=== PATIENT | female | born 1945 | race Caucasian/White ===

== ENCOUNTER → 2024-09-01 | Outpatient (CLI) | payer MEDICARE, OTHER, SELFPAY ==
[2024-09-01 09:01] LABS: Basophils % (Auto) 1 % (0-2.5); Eosinophils # (Auto) 0.1 Thou/mm3 (0.0-0.5); Eosinophils % (Auto) 2 % (0-10); Hematocrit 39.4 % (36.0-46.0); Immature Granulocytes % (Auto) 0 % (0-0); Immature Granulocytes Auto 0.02 Thou/mm3 (0.00-0.00); Lymphocytes # (Auto) 1.4 Thou/mm3 (1.0-4.8); Lymphocytes % (Auto) 21 % (10-50); Mean Corpuscular Hemoglobin 30.7 pg (25.0-35.0); Mean Corpuscular Volume 93 fL (80-100); Monocytes # (Auto) 0.5 Thou/mm3 (0.0-0.8); Monocytes % (Auto) 8 % (0-12); Neutrophils # (Auto) 4.4 Thou/mm3 (1.8-7.7); Neutrophils % (Auto) 68 % (37-80); Nucleated Red Blood Cell % 0 /100 WBC (0); Platelet Count 248 Thou/mm3 (140-440); RDW Standard Deviation 46.9 fL (36.4-46.3); Red Blood Count 4.24 Miln/mm3 (4.00-5.20); White Blood Count 6.5 Thou/mm3 (3.6-11.0)
[2024-09-01 09:11] LABS: Glucose Estimated Average 177 mg/dL (80-131); Hemoglobin A1C 7.8 % Hgb (4.8-6.0)
[2024-09-01 09:35] LABS: Alanine Aminotransferase 12 U/L (10-49); Albumin, Serum 4.2 gm/dL (3.4-4.8); Albumin/Globulin Ratio 1.6 (1.2-2.2); Alkaline Phosphatase 97 U/L (46-116); Anion Gap 8 (7-16); Aspartate Amino Transferase 13 U/L (0-34); BUN/Creatinine Ratio 25 Ratio (12-20); Bilirubin,Total 0.3 mg/dL (0.3-1.2); Blood Urea Nitrogen 20 mg/dL (9-23); Calcium 9.3 mg/dL (8.3-10.6); Calcium (Corrected) 9.3 mg/dL (8.5-10.1); Carbon Dioxide 25.7 mMol/L (20.0-31.0); Chloride 101 mMol/L (98-107); Creatinine (Component) 0.8 mg/dL (0.6-1.3); Globulin 2.6 gm/dL (2.3-3.5); Glucose 162 mg/dL (74-106); Osmolality,Calculated 276 (275-295); Potassium 4.2 mMol/L (3.4-5.1); Sodium 135 mMol/L (136-145); Total Protein 6.8 gm/dL (5.7-8.2); eGFR > 60 See Note
[2024-09-01 09:52] LABS: Creatinine MALB Rnd Ur 38 mg/dL (30-125); Microalbumin, Random Urine < 3 mg/L (0-300)
== END | disposition home or self-care (01) ==
LOC: COPL 07:41
PROVIDERS: PCP Registered Nurse; Referring Provider Registered Nurse; Visit Provider Registered Nurse
DX: E11.65 Type 2 diabetes mellitus with hyperglycemia (principal); I10 Essential (primary) hypertension
CPT/HCPCS: 36415; 80053; 82043; 82570; 83036; 85025

== ENCOUNTER 2024-10-23 10:10 | Day surgery (SDC) | payer MEDICARE, OTHER, SELFPAY ==
[2024-10-22 12:02] VITALS: BMI 20.3
[2024-10-23] VITALS (9 sets, daily range): BP systolic 147–182; BP diastolic 68–87; PULSE 69–89; RESP 15–22; TEMP 36.3–36.7; O2SAT 95–98; BMI 20.5
[2024-10-23] MEDS: SODIUM CHLORIDE 0.9% 500 ML 500 ML 20 ML IV (12:10)
[2024-10-23] MEDS: ONDANSETRON INJ 2 MG/ML INJ 2 ML 4 MG IV (12:15)
[2024-10-23] MEDS: MIDAZOLAM INJ 1 MG/ML VIAL 2 ML (ASD USE ONLY) IV (12:18)
[2024-10-23] MEDS: fentaNYL CIT INJ 50 mCg/ML AMP 2ML (ASD USE ONLY) 25 MCG IV (12:18)
[2024-10-23] MEDS: DiphenhydrAMINE INJ 50 MG/ML VIAL 25 MG IV (12:25)
== END 2024-10-23 13:25 | disposition home or self-care (01) ==
PROVIDERS: PCP Registered Nurse; Referring Provider Specialist; Visit Provider Specialist
PROC: 0DBE8ZX Excision of Large Intestine, Via Natural or Artificial Opening Endoscopic, Diagnostic (ICD-10-PCS; CPT 45380; principal; 2024-10-23 12:15)
DX: K52.9 Noninfective gastroenteritis and colitis, unspecified (principal); K63.89 Other specified diseases of intestine; K62.89 Other specified diseases of anus and rectum; K57.30 Diverticulosis of large intestine without perforation or abscess without bleeding; K64.8 Other hemorrhoids
CPT/HCPCS: 45380; A4649; J1200; J2250; J2405; J3010; J7040

== ENCOUNTER → 2024-12-14 | Outpatient (CLI) | payer MEDICARE, OTHER, SELFPAY ==
[2024-12-14 13:19] LABS: Anion Gap 4 (7-16); BUN/Creatinine Ratio 19 Ratio (12-20); Blood Urea Nitrogen 15 mg/dL (9-23); Calcium 9.2 mg/dL (8.3-10.6); Carbon Dioxide 27.9 mMol/L (20.0-31.0); Cardiac Risk Estimate 2.4 RATIO (3.7-5.6); Chloride 99 mMol/L (98-107); Cholesterol 150 mg/dL (132-200); Creatinine (Component) 0.8 mg/dL (0.6-1.3); Glucose 190 mg/dL (74-106); HDL Cholesterol 63 mg/dL (40-60); LDL Cholesterol,Calculated 76 mg/dL (0-130); Osmolality,Calculated 268 (275-295); Potassium 4.2 mMol/L (3.4-5.1); Sodium 131 mMol/L (136-145); Triglycerides 53 mg/dL (30-150); eGFR > 60 See Note
[2024-12-14 13:30] LABS: Glucose Estimated Average 166 mg/dL (80-131); Hemoglobin A1C 7.4 % Hgb (4.8-6.0)
== END | disposition home or self-care (01) ==
LOC: COPL 11:47
PROVIDERS: PCP Registered Nurse; Referring Provider Internal Medicine Endocrinology, Diabetes & Metabolism; Visit Provider Internal Medicine Endocrinology, Diabetes & Metabolism
DX: E13.9 Other specified diabetes mellitus without complications (principal)
CPT/HCPCS: 36415; 80048; 80061; 83036

== ENCOUNTER → 2025-04-30 | Outpatient (CLI) | payer MEDICARE, OTHER, SELFPAY ==
--- NOTE | 2025-04-30 10:29 | XR_ITS ---
Examination: PA lateral chest 2 views TECHNIQUE: Upright PA lateral chest 2 views Date and time: April 30, 2025, 1042 hours, comparison April 10, 2019 INDICATIONS: Shortness of breath and coughing 5 years. FINDINGS: COPD with bibasilar scarring Normal heart size 6 cm masslike area in the left upper lobe Severe osteopenia IMPRESSION: Recommend CT chest post contrast follow-up to confirm 6 cm pulmonary mass left upper lobe
== END | disposition home or self-care (01) ==
PROVIDERS: PCP Registered Nurse; Referring Provider Registered Nurse; Visit Provider Registered Nurse
DX: R06.02 Shortness of breath (principal); R05.9 Cough, unspecified
CPT/HCPCS: 71046

== ENCOUNTER → 2025-05-13 | Outpatient (CLI) | payer MEDICARE, OTHER, SELFPAY ==
[2025-05-13 16:58] LABS: Albumin, Serum 4.2 gm/dL (3.4-4.8); Anion Gap 11 (7-16); BUN/Creatinine Ratio 15 Ratio (12-20); Blood Urea Nitrogen 12 mg/dL (9-23); Calcium 9.1 mg/dL (8.3-10.6); Calcium (Corrected) 9.1 mg/dL (8.5-10.1); Carbon Dioxide 28.1 mMol/L (20.0-31.0); Chloride 101 mMol/L (98-107); Creatinine (Component) 0.8 mg/dL (0.6-1.3); Glucose 153 mg/dL (74-106); Osmolality,Calculated 282 (275-295); Phosphorous 4.2 mg/dL (2.4-5.1); Potassium 4.5 mMol/L (3.4-5.1); Sodium 140 mMol/L (136-145); eGFR > 60 See Note
== END | disposition home or self-care (01) ==
LOC: COPL 14:16
PROVIDERS: PCP Family Medicine; Referring Provider Registered Nurse; Visit Provider Registered Nurse
DX: R91.8 Other nonspecific abnormal finding of lung field (principal); I10 Essential (primary) hypertension
CPT/HCPCS: 36415; 80048; 80069

== ENCOUNTER → 2025-05-20 | Outpatient (CLI) | payer MEDICARE, OTHER, SELFPAY ==
--- NOTE | 2025-05-20 10:00 | XR_ITS ---
Examination: CT chest with intravenous contrast 2-D sagittal and coronal reconstructions Exam date and time: May 20, 2025, 0956 hours, comparison June 06, 2016 INDICATIONS: Smoking history, diagnosis benign neoplasm left bronchus lung, shortness of breath 2 weeks CTDI:vol (mGy) 8.46 DLP: (mGycm) 300 Technique: Multiple axial sections of the thorax have been obtained. Sections have been obtained, 3 mm slice thickness. Mediastinal and lung density settings have been obtained. Intravenous contrast administered, 60 cc Isovue-370. 2-D sagittal, coronal images obtained. Low dose protocols were performed. One or more of the following dose reduction techniques were used; automated exposure control, adjustment of the mA and/or KV according to patient size, use of iterative reconstruction technique. Findings: Bilateral thyromegaly with subcentimeter thyroid nodules thoracic aortic calcification no aneurysmal dilatation Pulmonary artery segments are not enlarged. No pulmonary artery filling defects Minimal left hilar lymphadenopathy Thick-walled cavitary mass left upper lobe with spiculated margins, the cavitary lesion measuring 5.4 x 4.8 cm COPD with areas of airspace destruction Nodular parenchymal disease in the anterior segment left upper lobe No lobar pneumonia Mildly dilated bronchi in the right lower lobe No visualized liver or splenic lesion Multiple small gallstones Common bile duct 10 mm No pancreatic mass Renal scarring, no hydronephrosis Severe osteopenia IMPRESSION: Bilateral thyromegaly with subcentimeter thyroid nodules Thick-walled cavitary mass left upper lobe with spiculated margins, 5.4 x 4.8 cm, differential would include pulmonary neoplasm COPD Nodular parenchymal disease in the anterior segment left upper lobe Bronchiectasis right lower lobe Cholelithiasis Enlarged common bile duct 10 mm, recommend hepatobiliary sonography follow-up
== END | disposition home or self-care (01) ==
LOC: CCTX 09:17
PROVIDERS: PCP Registered Nurse; Referring Provider Registered Nurse; Visit Provider Registered Nurse
DX: E04.2 Nontoxic multinodular goiter (principal); R91.8 Other nonspecific abnormal finding of lung field; J44.9 Chronic obstructive pulmonary disease, unspecified; J47.9 Bronchiectasis, uncomplicated; K80.20 Calculus of gallbladder without cholecystitis without obstruction; K83.8 Other specified diseases of biliary tract
CPT/HCPCS: 71260; A4649; Q9967

== ENCOUNTER → 2025-05-27 | Outpatient (CLI) | payer MEDICARE, OTHER, SELFPAY ==
[2025-05-27 15:31] LABS: Basophils # (Auto) 0.0 Thou/mm3 (0.0-0.2); Basophils % (Auto) 0 % (0-2.5); Eosinophils # (Auto) 0.2 Thou/mm3 (0.0-0.5); Eosinophils % (Auto) 4 % (0-10); Hematocrit 34.9 % (36.0-46.0); Hemoglobin 11.2 g/dL (12.0-16.0); Immature Granulocytes Auto 0.01 Thou/mm3 (0.00-0.00); Lymphocytes # (Auto) 1.3 Thou/mm3 (1.0-4.8); Lymphocytes % (Auto) 22 % (10-50); Mean Corpuscular HGB Conc 32.1 g/dl (31.0-37.0); Mean Corpuscular Hemoglobin 30.2 pg (25.0-35.0); Mean Corpuscular Volume 94 fL (80-100); Monocytes # (Auto) 0.5 Thou/mm3 (0.0-0.8); Monocytes % (Auto) 8 % (0-12); Neutrophils # (Auto) 3.9 Thou/mm3 (1.8-7.7); Neutrophils % (Auto) 66 % (37-80); Nucleated Red Blood Cell # 0.00 Thou/mm3 (0.00-0.00); Nucleated Red Blood Cell % 0 /100 WBC (0); Platelet Count 231 Thou/mm3 (140-440); RDW Standard Deviation 46.0 fL (36.4-46.3); Red Blood Count 3.71 Miln/mm3 (4.00-5.20); White Blood Count 6.0 Thou/mm3 (3.6-11.0)
[2025-05-27 15:42] LABS: Glucose Estimated Average 166 mg/dL (80-131); Hemoglobin A1C 7.4 % Hgb (4.8-6.0)
[2025-05-27 15:47] LABS: Free T4 (Free Thyroxine) 1.15 ng/dL (0.89-1.76); Thyroid Stimulating Hormone 1.40 uIU/mL (0.55-4.78)
[2025-05-28 12:16] LABS: Cocci Serology, IgM Negative (Negative)
[2025-05-29 14:42] LABS: Cocci Serology, IgG Negative (Negative)
== END | disposition home or self-care (01) ==
LOC: COPL 14:16
PROVIDERS: PCP Family Medicine; Referring Provider Registered Nurse; Visit Provider Registered Nurse
DX: R91.1 Solitary pulmonary nodule (principal); E10.8 Type 1 diabetes mellitus with unspecified complications; R63.5 Abnormal weight gain
CPT/HCPCS: 36415; 83036; 84439; 84443; 85025; 86331; 86635

== ENCOUNTER → 2025-05-31 | Outpatient (CLI) | payer MEDICARE, OTHER, SELFPAY ==
[2025-05-31 11:50] LABS: Quantiferon-TB* See Sep Rpt
== END | disposition home or self-care (01) ==
PROVIDERS: PCP Registered Nurse; Referring Provider Registered Nurse; Visit Provider Registered Nurse
DX: R91.1 Solitary pulmonary nodule (principal); E10.8 Type 1 diabetes mellitus with unspecified complications
CPT/HCPCS: 86480

== ENCOUNTER → 2025-06-07 | Outpatient (CLI) | payer MEDICARE, OTHER, SELFPAY ==
--- NOTE | 2025-06-07 08:55 | XR_ITS ---
Examination: Bilateral hips, AP pelvis, 5 views Technique: AP, lateral views both hips, AP pelvis, 5 views Exam date and time: June 07, 2025, 0919 hours INDICATIONS: Bilateral hip pain beginning 3 days ago. FINDINGS: Severe osteopenia Right hip hemiarthroplasty with satisfactory alignment Moderate narrowing left hip joint No hip or pelvic fracture IMPRESSION: Right hip hemiarthroplasty with satisfactory alignment Moderate narrowing left hip joint
[2025-06-07 10:48] LABS: Albumin, Serum 4.4 gm/dL (3.4-4.8); Anion Gap 10 (7-16); BUN/Creatinine Ratio 14 Ratio (12-20); Blood Urea Nitrogen 11 mg/dL (9-23); Calcium 9.4 mg/dL (8.3-10.6); Calcium (Corrected) 9.4 mg/dL (8.5-10.1); Carbon Dioxide 25.9 mMol/L (20.0-31.0); Chloride 98 mMol/L (98-107); Creatinine (Component) 0.8 mg/dL (0.6-1.3); Glucose 154 mg/dL (74-106); Osmolality,Calculated 270 (275-295); Phosphorous 3.6 mg/dL (2.4-5.1); Potassium 4.6 mMol/L (3.4-5.1); Sodium 134 mMol/L (136-145); eGFR > 60 See Note
== END | disposition home or self-care (01) ==
LOC: CDIM 09:00 → COPL 09:45
PROVIDERS: PCP Registered Nurse; Referring Provider Internal Medicine Cardiovascular Disease; Visit Provider Radiology Diagnostic Radiology
DX: M25.852 Other specified joint disorders, left hip (principal); Z96.641 Presence of right artificial hip joint; I20.89 Other forms of angina pectoris
CPT/HCPCS: 36415; 73523; 80069

== ENCOUNTER 2025-06-22 06:59 | Outpatient (CLI) | payer MEDICARE, OTHER, SELFPAY ==
[2025-06-18 16:08] VITALS: BMI 24.2
--- NOTE | 2025-06-21 08:28 | PC.NURSE ---
Per Dr. Faust, it is ok for patient to come in and do procedure as long as patient has not taken a blood thinner for 4 days.
[2025-06-21 13:35] LABS: Basophils # (Auto) 0.0 Thou/mm3 (0.0-0.2); Basophils % (Auto) 1 % (0-2.5); Eosinophils # (Auto) 0.2 Thou/mm3 (0.0-0.5); Eosinophils % (Auto) 2 % (0-10); Hematocrit 34.3 % (36.0-46.0); Hemoglobin 11.0 g/dL (12.0-16.0); Immature Granulocytes Auto 0.02 Thou/mm3 (0.00-0.00); Lymphocytes # (Auto) 1.4 Thou/mm3 (1.0-4.8); Lymphocytes % (Auto) 22 % (10-50); Mean Corpuscular HGB Conc 32.1 g/dl (31.0-37.0); Mean Corpuscular Hemoglobin 30.1 pg (25.0-35.0); Mean Corpuscular Volume 94 fL (80-100); Monocytes # (Auto) 0.6 Thou/mm3 (0.0-0.8); Monocytes % (Auto) 9 % (0-12); Neutrophils # (Auto) 4.2 Thou/mm3 (1.8-7.7); Neutrophils % (Auto) 66 % (37-80); Nucleated Red Blood Cell # 0.00 Thou/mm3 (0.00-0.00); Nucleated Red Blood Cell % 0 /100 WBC (0); Platelet Count 250 Thou/mm3 (140-440); RDW Standard Deviation 45.9 fL (36.4-46.3); Red Blood Count 3.65 Miln/mm3 (4.00-5.20); White Blood Count 6.4 Thou/mm3 (3.6-11.0)
[2025-06-21 13:40] LABS: Blood Urea Nitrogen 13 mg/dL (9-23); Creatinine (Component) 0.7 mg/dL (0.6-1.3); Estimated Creatinine Clearance 60.0 mL/min (>60); eGFR > 60 See Note
[2025-06-21 13:59] LABS: INR 0.9 (0.9-1.3); Partial Thromboplastin Time 27.3 Seconds (22.0-36.0); Prothrombin Time 9.9 Seconds (9.0-12.2)
[2025-06-22] VITALS (19 sets, daily range): BP systolic 137–179; BP diastolic 56–103; PULSE 79–104; RESP 13–20; TEMP 36.8–37.2; O2SAT 93–100
--- NOTE | 2025-06-22 08:30 | XR_ITS ---
EXAM: CT-guided left lung mass biopsy INDICATION: 5 cm cavitary mass left upper lobe. DATE: 06/22/2025, 8:55 a.m. CTDI: 30.7 DLP: 477 PROCEDURE: After discussion of risks and benefits informed consent was obtained. The patient was brought to the CT scanner and placed in the supine position. Preliminary noncontrast enhanced CT again demonstrated a 5 cm cavitary mass left upper lobe. This was targeted for biopsy. The overlying skin was cleaned and draped in normal sterile surgical fashion. Conscious sedation was begun with direct continuous nursing supervision. 10 cc of 1% lidocaine was used for local anesthesia. Using CT guidance an 18-gauge needle biopsy system was sequentially advanced into the targeted mass. Multiple core biopsy samples were obtained, placed in formalin and sent to pathology for analysis. The needle was withdrawn. Hemostasis was achieved. The access site was covered with a sterile dressing. Postbiopsy CT was performed which demonstrated no evidence of hemorrhage or pneumothorax. The patient tolerated the procedure well and transferred back to the holding area for post procedural observation. IMPRESSION: Successful CT-guided left upper lobe lung mass biopsy under conscious sedation as described above.
[2025-06-22] MEDS: MIDAZOLAM INJ 1 MG/ML VIAL 2 ML 0.5 MG IVP (09:12)
[2025-06-22] MEDS: fentaNYL CIT INJ 50 mCg/ML AMP 2ML IV (09:12)
[2025-06-22] MEDS: LIDOCAINE INJ PF 1% 30 ML VIAL 10 ML INFL (09:14)
--- NOTE | 2025-06-22 09:39 | XR_ITS ---
EXAMINATION: AP chest single view TECHNIQUE: AP portable supine chest single view Date and time: June 22, 2025, 0947 hours, comparison 04/30/2025 INDICATIONS: Post lung biopsy today. FINDINGS: Large pulmonary mass left upper lobe. No pneumothorax Mild prominence left ventricle IMPRESSION: No pneumothorax post lung biopsy
--- NOTE | 2025-06-22 10:45 | XR_ITS ---
CLINICAL INDICATION: 2nd xray post lung bx, assess for pneumothorax TECHNIQUE: XR chest 1V post procedure Exam date and time: 06/22/2025 11:01 a.m. COMPARISON: Chest radiograph of earlier the same day at 9:47 a.m., and same day CT guided lung biopsy. FINDINGS: No evidence for postbiopsy pneumothorax on the left. Cavitary left upper lobe mass is reidentified. Both lungs are diffusely coarse due to severe emphysema and mild septal thickening. Mild right basilar atelectasis or scarring. No apparent pleural effusions. The cardiomediastinal silhouette is within normal limits of size for portable technique. Aortic atherosclerosis is identified. No acute osseous abnormality detected. IMPRESSION: No evidence for postbiopsy pneumothorax.
== END 2025-06-22 11:58 | disposition home or self-care (01) ==
PROVIDERS: PCP Registered Nurse; Referring Provider Specialist; Visit Provider Radiology Diagnostic Radiology
DX: R91.1 Solitary pulmonary nodule (principal)
CPT/HCPCS: 32408; 36415; 77012; 82565; 84520; 85025; 85610; 85730; 99152; J2250; J3010; J3490

== ENCOUNTER → 2025-07-22 | Outpatient (CLI) | payer MEDICARE, OTHER, SELFPAY ==
[2025-07-23 12:44] LABS: Cocci Serology, IgM Negative (Negative)
[2025-07-24 14:33] LABS: Cocci Serology, IgG Negative (Negative)
== END | disposition home or self-care (01) ==
LOC: COPL 13:19
PROVIDERS: PCP Family Medicine; Referring Provider Registered Nurse; Visit Provider Registered Nurse
DX: R06.00 Dyspnea, unspecified (principal); R91.1 Solitary pulmonary nodule
CPT/HCPCS: 36415; 86331; 86635

== ENCOUNTER 2025-08-05 09:01 | Outpatient (AMB) | payer MEDICARE, OTHER, SELFPAY ==
[2025-08-05 09:37] VITALS: BP 166/75; PULSE 82; RESP 18; TEMP 36.4; O2SAT 94; BMI 24.2
--- NOTE | 2025-08-05 09:37 | ORTHONT_ITS ---
Vital signs 08/05/25 09:37 Height 1.68 m Height Method Stated Weight 68.039 kg Weight Measurement Method Estimated by Patient BMI 24.2 BP 166/75 H Blood Pressure Source Automatic Cuff Blood Pressure Location Left Upper Arm Position Sitting Respiration 18 Pulse 82 Pulse Source Monitor Temp 97.5 F Temp Source Temporal Artery Scan Pulse Oximetry (%) 94 L Oxygen Delivery Method Room Air Med/Allergies Allergies & Medications Allergies latex Allergy (Severe, Verified 08/05/25 09:42) Hives codeine Allergy (Intermediate, Verified 08/05/25 09:42) HALLUCINATE Medication Reconciliation aspirin 81 mg capsule 81 mg PO QDAY 06/13/21 [History Confirmed 08/05/25] Held on 06/22/25. Instructions: Resume on 06/23/25. albuterol sulfate 90 mcg/actuation aerosol inhaler 2 puff inhalation Q6H PRN w heezing 02/14/24 [History Confirmed 08/05/25] insulin aspart (niacinamide)(U-100) 100 unit/mL(3 mL) subcutaneous pen (Fiasp FlexTouch U-100 Insulin) 6 unit subcut TID 02/14/24 [History Confirmed 08/05/25] clopidogrel 75 mg tablet 75 mg PO QDAY 10/23/24 [History Confirmed 08/05/25] Held on 06/22/25. Instructions: Resume on 06/23/25. furosemide 40 mg tablet 40 mg PO QDAY 10/23/24 [History Confirmed 08/05/25] potassium chloride 20 mEq tablet,extended release(part/cryst) 20 meq PO QDAY 10/23/24 [History Confirmed 08/05/25] fluticasone fur. 200 mcg-umeclid 62.5 mcg-vilant 25 mcg inhalat.powder (Trelegy Ellipta) 1 inh inhalation QDAY 06/22/25 [History Confirmed 08/05/25] Exam Exam Patient is in no acute distress and is cooperative with the examination today. Breathing is nonlabored. In no respiratory distress. Patient has paraspinal tenderness and significant scoliosis Bilateral extremities were evaluated and demonstrates sensation intact to light touch. Palpable pedal pulses are present. No significant edema is present. Bilateral knees were examined and the patient has full strength and range of motion.. The left hip was examined. Patient was able to flex to 90 degrees, adduct to 30 degrees, abduct to 40 degrees, internally rotate to 20 degrees, and externally rotate to 20 degrees. Patient has a negative logroll. Stinchfield is negative. The patient is nontender diffusely to touch. The right hip was examined. Patient was able to flex to 90 degrees, adduct to 30 degrees, abduct to 40 degrees, internally rotate to 20 degrees, and externally rotate to 20 degrees. Patient has a negative logroll. The stinchfield is negative. X-rays of the bilateral hips were reviewed. 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 The femoral component does not appear to be subsiding compared to previous x-rays. She does have mild to moderate arthritis of her left hip. The patient has extensive scoliosis in her spine Assessment and Plan Problem List (1) Back pain: Status: Acute Plan: Patient is an 79-year-old female with back pain and extensive scoliosis. She had a recent hemiarthroplasty 5 years ago and has pain in both hips. She is wheelchair-bound primarily because of her spine. I discussed with her that a hip replacement probably would not help with her symptoms at much as a lot of her symptoms are from her back. We discussed the risks and benefits of surgery and she wants to proceed with nonoperative management at this time is reasonable. I also discussed with her that given her bone quality I recommend that she start osteoporosis medication. Advanced Care Planning Discussion Advance care planning discussed with:: patient and other Office Procedures GNS Level of Care Nursing/Assessment Patient Status: Initial/New Patient Nursing Assessment/Reassesment: Medication Reconciliation, Update PMH in EMR and Vital Signs Coordination of Care: Complex Care and Chronic Disease 1-5, Education Complex Pt/Fam, Consent,records obtained, informed consent, 1 Ins Authorization, Lab and Imaging orders, Results/Orders obtained and Staff clarify orders New Patient Charge New Patient Point Assignment: 1124 New Patient Point Charge: PATIENT RELATIONS COORDINATOR Level 4 ([id number]) MA Intake Visit Data Collection New Patient or Established: New Patient (never been to [facility]) Reason for Visit:: BILATERAL HIP PAIN Seen by Clinical Staff ONLY (RN/MA): No PCP or OBGYN visit in last 3 months: Yes Hx Now: No Do You Feel Safe at Home: Yes Authorities Contacted: N/A Questionairres Past Medical History Past Medical History Have you ever been diagnosed with any of the following: Neurological Problems Seizures: No Cardiology Problems Myocardial Infarction: Yes Cardiac Arrhythmia: No Atrial Fibrillation: No Peripheral Vascular Disease: No Congestive Heart Failure: No Edema: No Hypertension: No Respiratory Problems Chronic Obstructive Pulmonary Disease (COPD): Yes Asthma: No Emphysema: No Pneumonia: No Tuberculosis: No Sleep Apnea: Yes Stomache/Intestinal Problems Hepatitis: No Genital/Urinary Problems Renal Disease: No Reproductive Problems Previous Pregnancies: Yes Musculoskeletal Problems Arthritis: Yes Head,Eye,Nose,Throat Problems Cataracts: Yes Endocrine Problems Diabetes Mellitus Type 1: Yes Diabetes Mellitus Type 2: Yes Hyperthyroidism: No Hypothyroidism: No Parathyroid Disease: No Blood Problems Anemia: Yes Psychologic Problems Depression: No Anxiety: No Other Problems Hospitalization: No Shingles: No Falls: No Blood Transfusions: No Blood Transfusion Reaction: No Anesthesia Reactions: No Chemotherapy: No Radiation Therapy: No MRSA: No Measles: Yes Mumps: Yes Cancer: No Surgical History Pacemaker: No Subjective Visit Visit for: new patient and knee Immunization / Flu Flu Vaccine in the Last 12 Months: Yes Flu Vaccine Exclusion Criteria: Already Received History of Present Illness Chief complaint: BL HIP PAIN HISTORY OF PRESENT ILLNESS I, Damian Valle, have obtained verbal consent from the patient, to be recorded during this encounter which may include, but not limited to, medical history, examination, treatment plans, and relevant health information.? Patient was informed that recording will be read and reviewed by myself before inclusion in the medical chart. The patient is an 79-year-old female presenting for evaluation of bilateral hip pain. She has been experiencing bilateral hip pain since last month, with the left side being more painful than the right. The pain is described as sharp, dull, and aching, with a severity of 6 out of 10. She reports no current pain but experiences discomfort when walking. She uses a walker for mobility at home and a wheelchair for longer distances. She has not received any injections, physical therapy, or pain medication for this condition. She has no known medical conditions. She was last seen 5 years ago for a right hip replacement performed by Dr. Rico and had a right knee scrape 6 years ago. She was informed that her hip replacement was incorrectly performed. She has previously received spinal injections, which provided temporary relief. She is currently on pain medication prescribed by her primary care physician, but it is not sufficiently managing her pain. PAST SURGICAL HISTORY: - Right hip replacement, 5 years ago - Right knee scrape, 6 years ago Personal History Occupation: RETIRED Pain Pain level (0-10): 6 Pain duration: ON AND OFF Pain location: inside (medial) Pain quality: dull and aching Pain timing: night, increases with activity and stairs Associated signs & symptoms: weakness Ambulatory data Ambulatory device: other (specify) (WHEEL CHAIR) Treatments Improvement with previous injections: No Improvement with PT: No Improvement with NSAIDS: no Review of Systems Review of Systems: All systems negative unless otherwise noted in HPI.
== END 2025-08-05 10:00 | disposition home or self-care (01) ==
LOC: HODSRG 09:01
PROVIDERS: PCP Registered Nurse; Referring Provider Registered Nurse; Supervising Provider Orthopaedic Surgery Adult Reconstructive Orthopaedic Surgery; Visit Provider Orthopaedic Surgery Adult Reconstructive Orthopaedic Surgery
DX: M25.552 Pain in left hip (principal); M25.551 Pain in right hip; Z96.641 Presence of right artificial hip joint; E11.9 Type 2 diabetes mellitus without complications; Z79.4 Long term (current) use of insulin; M41.9 Scoliosis, unspecified
CPT/HCPCS: 99204; G0463